=== PATIENT | male | born 1995 | race Caucasian/White ===

== ENCOUNTER 2017-01-06 11:14 | Emergency (ER) | payer SELFPAY ==
[2017-01-06 11:19] VITALS: BP 150/80; PULSE 60; TEMP 98.4; BMI 25.7
--- NOTE | 2017-01-06 12:19 | PDOC ---
History of Present Illness - General Chief Complaint: Itching Stated Complaint: STD TESTING Time Seen by Provider: 01/06/17 11:42 History Source: Patient Exam Limitations: No Limitations - History of Present Illness Initial Comments: 01/06/17 12:15 21 yr male here requesting STD testing. [place] sexual partners. Pt denies any discharge or urinary burning. Pt has no medical history or allergies. Past History - Past Medical History Allergies/Adverse Reactions: Allergies Allergy/AdvReac Type Severity Reaction Status Date / Time No Known Allergies Allergy Verified 01/06/17 11:19 Home Medications: Ambulatory Orders NK [No Known Home Medication] 01/06/17 Other medical history: denies - Immunization History Td Vaccination: Yes Immunization Up to Date: Yes - Suicide/Smoking/Psychosocial Hx Smoking Status: No Smoking History: Never smoked Number of Cigarettes Smoked Daily: 4 Information on smoking cessation initiated: No Hx Alcohol Use: No Drug/Substance Use Hx: No Substance Use Type: None Review of Systems - Review of Systems Able to Perform ROS?: Yes Is the patient limited Kiswahili proficient: No Constitutional: No: Symptoms Reported HEENTM: No: Symptoms Reported Respiratory: No: Symptoms reported Cardiac (ROS): No: Symptoms Reported ABD/GI: No: Symptoms Reported : Yes: Symptoms Reported Musculoskeletal: No: Symptoms Reported *Physical Exam - Vital Signs Last Vital Signs Temp Pulse Resp BP Pulse Ox 98.4 F 60 19 150/80 100 01/06/17 11:17 01/06/17 11:17 01/06/17 11:17 01/06/17 11:17 01/06/17 11:17 - Physical Exam General Appearance: Yes: Nourished, Appropriately Dressed HEENT: positive: EOMI, CORNELIO Male Genitalia: positive: normal genitalia. negative: discharge, testicular tenderness, testicular mass, epididymus tender, CVAT, hematuria Rectal Exam: positive: other (pt denies anal intercourse ) Lymphatic: negative: Adenopathy Musculoskeletal: positive: Normal Inspection Extremity: positive: Normal Capillary Refill, Normal Inspection, Normal Range of Motion Integumentary: positive: Normal Color, Dry, Warm Neurologic: positive: Fully Oriented, Alert, Normal Mood/Affect, Normal Response , Motor Strength 5/5 Medical Decision Making - Medical Decision Making 01/06/17 12:19 cc: wants to be tested for STD's will check urine, HIV, hep, RPR pt is asymptomatic *DC/Admit/Observation/Transfer Diagnosis at time of Disposition: Screen for STD (sexually transmitted disease) - Discharge Dispostion Disposition: HOME Condition at time of disposition: Good - Referrals Referrals: Emmanuel Chowdary MD [Staff Physician] - - Patient Instructions Additional Instructions: 01/06/17 1. As discussed, a screening test for the HIV virus was performed today. Your HIV test is Negative (normal). 2. As discussed, if you engaged in high risk-behavior in the three (3) months prior to this test, you could still potentially be at risk and you will need to be re-tested. 3. As discussed, avoid any high risk behavior (such as unprotected sex or needle-sharing) in the future to minimize the chances of lucian HIV. follow with the urologist for any complaints or symptoms always use condoms during sexual activity the HIV test today was negative, the CDC recommends repeat testing in 3 months we will notify you if any of the urine cultures taken today are positive for any infections make sure we have a valid phone number to contact you
[2017-01-06 13:01] LABS: URINE APPEARANCE CLEAR; URINE BILIRUBIN NEGATIVE (NEGATIVE); URINE BLOOD NEGATIVE (NEGATIVE); URINE COLOR YELLOW; URINE GLUCOSE (UA) NEGATIVE (NEGATIVE); URINE KETONE NEGATIVE (NEGATIVE); URINE NITRITE NEGATIVE (NEGATIVE); URINE PROTEIN NEGATIVE (NEGATIVE); URINE UROBILINOGEN NEGATIVE mg/dL (0.2-1.0)
[2017-01-06 13:14] LABS: HIV 1 & 2 AB NEGATIVE; HIV 1 AGp24 NEGATIVE
[2017-01-06 17:39] LABS: URINE LEUK ESTERASE Negative (NEGATIVE)
== END 2017-01-06 13:33 | disposition home or self-care (01) ==
LOC: JERFT 11:14
DX: Z20.2 Contact with and (suspected) exposure to infections with a predominantly sexual mode of transmission (principal)
CPT/HCPCS: 36415; 80074; 81003; 86593; 87389; 87491; 87591; 99281-25

== ENCOUNTER 2019-09-27 22:37 | Emergency (ER) | payer OTHER ==
--- NOTE | 2019-09-27 22:44 | PDOC ---
Rapid Medical Evaluation Chief Complaint: Injury Time Seen by Provider: 09/27/19 22:39 Medical Evaluation: Allergies Allergy/AdvReac Type Severity Reaction Status Date / Time No Known Allergies Allergy Verified 01/06/17 11:19 09/27/19 22:41 24 YEAR s/p fall down 5 steps 3 days ago c/o pain to the right rib pain today coughed up blood. denies shortness of breath, fever/ chills. patient also c/o right thigh pain PE; patient + right posterior rib tenderness. no bruising to flank. no CVAT able to walk without difficulty A; rib pain P; chest xray; rib xray ua Discharge Disposition - Diagnosis Rib pain on right side, Right thigh pain - Referrals - Patient Instructions - Post Discharge Activity
[2019-09-27 22:47] VITALS: BP 119/58; PULSE 60; TEMP 98; BMI 25.1
[2019-09-27 23:27] LABS: URINE APPEARANCE CLEAR; URINE BILIRUBIN NEGATIVE (NEGATIVE); URINE COLOR YELLOW; URINE GLUCOSE (UA) NEGATIVE (NEGATIVE); URINE KETONE TRACE (NEGATIVE); URINE LEUK ESTERASE NEGATIVE (NEGATIVE); URINE NITRITE NEGATIVE (NEGATIVE); URINE PROTEIN NEGATIVE (NEGATIVE)
[2019-09-27] MEDS ORDERED: KETOROLAC TROMETHAMINE 30 MG/1 ML VIAL IM ONE (23:39)
--- NOTE | 2019-09-27 23:39 | PDOC ---
History of Present Illness - General Chief Complaint: Injury Stated Complaint: FALL Time Seen by Provider: 09/27/19 22:39 History Source: Patient - History of Present Illness Initial Comments: 09/28/19 00:16 24-year-old male complaining of fall 3 days ago landed on the right side complaining of right posterior rib pain and right thigh bruising. Patient reports that prior to the fall he has been having a cough. Mom is tested positive for coronavirus patient had a COVID test pending results since yesterday. Denies fever/chills, shortness of breath.last night had one blood streaked sputum after several episodes of coughing, 09/28/19 00:17 Past History - Medical History Allergies/Adverse Reactions: Allergies Allergy/AdvReac Type Severity Reaction Status Date / Time No Known Allergies Allergy Verified 09/27/19 22:43 Home Medications: Ambulatory Orders NK [No Known Home Medication] 01/06/17 COPD: No - Immunization History Td Vaccination: Yes Immunization Up to Date: Yes - Psycho-Social/Smoking History Smoking Status: No Smoking History: Never smoked Number of Cigarettes Smoked Daily: 4 - Substance Abuse Hx (Audit-C & DAST Scrn) How often the patient has a drink containing alcohol: Monthly or less Score: In Men: 4 or > Positive; In Women: 3 or > Positive: 1 Screen Result (Pos requires Nsg. Audit-10AR): Negative Review of Systems - Review of Systems Able to Perform ROS?: Yes Is the patient limited Vincentian proficient: No Constitutional: No: Symptoms Reported, See HPI, Chills, Diaphoresis, Fever, Loss of Appetite, Malaise, Night Sweats, Weakness, Weight Stable, Unintentional Wgt. Loss, Unexplained wgt Loss, Other Respiratory: Yes: Cough. No: Symptoms reported, See HPI, Orthopnea, Shortness of Breath, SOB with Exertion, SOB at Rest, Stridor, Wheezing, Productive cough, Hemoptysis, Other *Physical Exam - Vital Signs Last Vital Signs Temp Pulse Resp BP Pulse Ox 98 F 60 18 119/58 L 98 09/27/19 22:38 09/27/19 22:38 09/27/19 22:38 09/27/19 22:38 09/27/19 22:38 - Physical Exam General Appearance: Yes: Appropriately Dressed Extremity: positive: Other (Large bruising to the right upper thigh. Patient has full ROM of hip and legs. Able to leg raise with no pain. No deformity noted) Integumentary: positive: Ecchymosis (right thigh) Neurologic: positive: Fully Oriented, Alert, Normal Mood/Affect ED Treatment Course - ADDITIONAL ORDERS Additional order review: Laboratory Results 09/27/19 23:00 Urine Color Yellow Urine Appearance Clear Urine pH 6.0 Ur Specific [place] 1.028 Urine Protein Negative Urine Glucose (UA) Negative Urine Ketones Trace H Urine Blood Negative Urine Nitrite Negative Urine Bilirubin Negative Urine Urobilinogen 1.0 Ur Leukocyte Esterase Negative - RADIOLOGY Radiology Studies Ordered: Category Date Time Status CHEST PA & LAT [RAD] Stat Radiology 09/27/19 22:43 Completed RIBS RIGHT SIDE [RAD] Stat Radiology 09/27/19 22:43 Completed ED Progress Note - Progress Note Progress Note: rib pain on the right; cough suspected covid P: xray negative covid test pending from outside testing center self quarantine reported. Discharge - Discharge Information Problems reviewed: Yes Clinical Impression/Diagnosis: Rib pain on right side, Right thigh pain, Suspected COVID-19 virus infection Disposition: HOME - Follow up/Referral - Patient Discharge Instructions Patient Printed Discharge Instructions: [facility]-Coronavirus Instructions Additional Instructions: You were seen for your cough and possible Coronavirus (COVID-19) Please call the [facility] testing center to make an appointment at or you can call [facility] at from 8:30 AM to 6 PM; or you can visit the [facility] website: [email or web address] for more information about testing at the [facility]. Take Tylenol 650 mg every 6 hours as needed for fever or pain. You may take Robitussin or other upsn-xom-uqyplmn cough syrup. Follow the dosing instructions on the bottle. Warm tea, honey, and salt water gargles may help your symptoms. Please take precautions and self quarantine for 2 weeks and follow-up with your primary care doctor and the Department of Health. Return to the nearest emergency department for shortness of breath, difficulty breathing, chest pain, or if you have any changes in your symptoms. Your chest x-ray was negative. There were no fractures. Apply ice to your right thigh. You may take ibuprofen every 6 hours as needed for pain. Follow-up with your doctor - Post Discharge Activity Work/Back to School Note: Back to Work
[2019-09-27] MEDS ORDERED: KETOROLAC TROMETHAMINE 30 MG/1 ML VIAL ONE (23:43)
== END 2019-09-28 00:49 | disposition home or self-care (01) ==
LOC: JER 22:37
PROC: 3E023GC Introduction of Other Therapeutic Substance into Muscle, Percutaneous Approach (ICD-10-PCS; principal; 2019-09-27)
DX: R07.81 Pleurodynia (principal); M79.604 Pain in right leg
CPT/HCPCS: 71046-TC-FY; 71101-TC-RT-FY; 81003; 96372; 99284-25